=== PATIENT | female | born 1985 | race Hispanic/Latino ===

== ENCOUNTER 2023-10-21 01:03 | Emergency (ER) | payer SELFPAY ==
[2023-10-21] MEDS ORDERED: Fluorescein Opthalmic Strip ONE (01:14)
[2023-10-21] MEDS ORDERED: Tetracaine 0.5% PF 4 ML BOT ONE (01:14)
== END 2023-10-21 01:28 | disposition home or self-care (01) ==
LOC: CSHERS 01:03
DX: H57.12 Ocular pain, left eye (principal)
CPT/HCPCS: 99283